=== PATIENT | male | born 1985 | race Caucasian/White ===

== ENCOUNTER → 2020-02-19 13:26 | Outpatient (BNVA) | payer SELFPAY | PROVIDERS: PCP Internal Medicine; Visit Provider Internal Medicine ==

== ENCOUNTER 2021-03-19 07:28 | Outpatient (REF) | payer BC, SELFPAY ==
[2021-03-19 08:22] LABS: COVID-19 Test Positive (Negative)
== END 2021-03-19 07:29 | disposition home or self-care (01) ==
LOC: HO.LAB 07:28
PROVIDERS: Visit Provider Internal Medicine
DX: Z20.822 Contact with and (suspected) exposure to COVID-19 (principal)
CPT/HCPCS: 36415; 87635

== ENCOUNTER 2022-08-22 07:26 | Emergency (ER) | payer OTHER, SELFPAY ==
--- NOTE | ~2022-08-22 | US_ITS ---
EXAMINATION: US VENOUS ULTRASOUND WITH DOPPLER LOWER EXTREMITY, RIGHT CLINICAL INFORMATION: Right lower extremity pain COMPARISON: None available. TECHNIQUE: Ultrasound of the deep veins is performed from the hip to the calf with compression sonography and color and pulse Doppler assessment. Spectral analysis with color-flow imaging is performed. FINDINGS: There is normal venous compression and respiratory variation and augmented flow. The visualized common femoral vein, superficial femoral vein, profunda femoral vein, popliteal vein, and the trifurcation region shows no evidence of deep venous thrombosis. There is no significant popliteal fossa cyst. If the patient's symptoms persist, followup ultrasound in 5 days 7 days might be of value to exclude proximal propagation from a non-visualized calf vein. US/US venous duplex LE RT IMPRESSION: No DVT demonstrated in the right lower extremity.
--- NOTE | ~2022-08-22 | XR_ITS ---
EXAMINATION: XR KNEE, RIGHT CLINICAL INFORMATION: Pain right lower extremity. COMPARISON: Right knee radiographs 12/14/2009 TECHNIQUE: Four views of the right knee. FINDINGS: Normal bony mineralization. No fracture, dislocation, destructive process, or suprapatellar effusion. Hoffa's fat pad appears normal. There is spurring at the quadriceps insertion patella. There are degenerative changes with mild narrowing medial knee joint compartment and marginal osteophytes from the medial femoral condyle and medial tibial plateau. No erosive change or chondral calcinosis. XR/XR knee RT 4V IMPRESSION: - Mild degenerative changes medial knee joint compartment. - Spurring at quadriceps insertion patella.
[2022-08-22 07:28] VITALS: BP 133/85; PULSE 72; RESP 18; TEMP 36.2; O2SAT 99; BMI 31.2
--- NOTE | 2022-08-22 08:00 | ED_ITS ---
HPI - Extremity Problem General Chief complaint: Extremity Problem Stated complaint: r knee down to calf pain Time Seen by Provider: 08/22/22 07:37 Source: patient Mode of arrival: ambulatory Limitations: no limitations History of Present Illness HPI Narrative: 37 year old male with no significant past medical history presents today with right knee pain x1 month. Patient reports both anterior and posterior right knee pain that is worse with rest and better with standing/ movement. Describes it as a constant aching sensation. The pain occasionally radiates down into the right foot. He states he is able to ambulate however does so with pain. Denies left knee or left lower extremity pain. Denies numbness, paresthesias, weakness, chest pain, shortness of breath, neck pain, back pain, bowel or bladder incontin ence. No injury or trauma to the RLE. Denies recent travel or surgery. No personal history of VTE. Not on blood thinners. MD Complaint: extremity pain Onset (ago): month(s) (1) Pain Consistency: constant Location: right and knee Related Data Previous Rx's Medication Instructions Recorded naproxen 500 mg tablet 500 mg PO BID PRN pain 10 days #20 08/22/22 tabs Allergies Allergy/AdvReac Type Severity Reaction Status Date / Time No Known Allergies Allergy Unverified 12/05/19 17:05 Review of Systems Review of Systems: Constitutional: No Fever, No Chills ENT/Mouth: No Ear Pain, No Nasal Congestion, No Sinus Pain, No Hoarseness, No sore throat, No Rhinorrhea Cardiovascular: No Chest Pain, No SOB Respiratory: No Cough Gastrointestinal: No Nausea, No Vomiting, No Diarrhea, No Constipation, No Abdominal pain Genitourinary: No Urinary Incontinence/retention Musculoskeletal: + joint pain, No Myalgias, No Joint Swelling Skin: No Skin Lesions, No rash Neuro: No Weakness, No Numbness, No Paresthesias Yes all other systems are reviewed and are negative Constitutional: Constitutional: Reports as per [facility] Past Medical History Attestation statement: The following information was validated with the patient. Source: old records reviewed Social History Social History Alcohol intake: never Smoked in Last 30 Days: No Use of substances other than those prescribed or required for medical reasons: No Advance Directives: No Advance Directives Information Provided: Yes Physical Exam Vital Signs: Vital Signs: Last Vital Signs Temp 97.7 F 08/22/22 09:18 Pulse 52 08/22/22 09:18 Resp 16 08/22/22 09:18 BP 123/81 08/22/22 09:18 Pulse Ox 98 08/22/22 09:18 O2 Del Method Room Air 08/22/22 09:18 BMI result Body Mass Index 31.2 VSS Const: General: cooperative and healthy appearing Orientation/consciousness: patient oriented x3 Limitations: no limitations HEENT: Head: Yes normal to inspection and Yes atraumatic Ears: hearing grossly normal bilaterally General nose exam: Normal external nose present Face and sinus: Yes normal facial exam Eyes: General: appearance normal, both eyes and all related structures EOM: EOMs intact bilaterally Neck: Neck: Yes normal visual inspection and Yes no meningeal signs Resp: Effort & Inspection: normal respiratory effort and no respiratory distress Cardio: Rate: regular rate Rhythm: regular rhythm Heart sounds: S1 normal heart sound present and S2 normal heart sound present Peripheral pulses: Peripheral pulses 2+ throughout Back/Spine/Pelvis: Thoracic/Lumbar Spine: thoracic and lumbar spine normal to inspection, No paraspinal muscle tenderness and No thoracic spinal tenderness Skin: Lesions: no lesions Rashes: no rashes Trauma: no lacerations or abrasions Wounds: no wounds Neuro: General: patient oriented x3, tone normal and no meningeal signs Gait exam (Neuro): Normal gait present Extrem: Other: diffuse right knee ttp > medial aspect, negative teja's sign b/l. No erythema/warmth or crepitus. Full range of motion intact. Neurovascular intact distal General: Yes no calf tenderness, No calf tenderness and No muscle atrophy Right upper extremity: normal to inspection Left upper extremity: normal to inspection Right lower extremity: full ROM, normal capillary refill, edema Details: pitting and 1+ and knee; no cyanosis and joint enlargement noted Lef t lower extremity: normal to inspection Course Course Course Narrative: US venous duplex LE RT IMPRESSION: No DVT demonstrated in the right lower extremity. XR knee RT 4V IMPRESSION: - Mild degenerative changes medial knee joint compartment. - Spurring at quadriceps insertion patella. Results discussed with patient including worrisome signs and symptoms and strict return precautions, and when to return to the emergency department. They verbalized understanding and feel safe for discharge at this time. Medical Decision Making Medical Decision Making [facility] Narrative: 37 year old male with no significant past medical history presents today with atraumatic aching right knee pain x1 month worse with rest and better with standing/ movement. No recent travel/ surgery. No VTE history. Not on blood thinners. VSS. Physical exam significant for FROM of right knee, right knee diffusely TTP, medially > laterally, +1 pitting edema of the RLE w/o calf tenderness. No erythema/warmth or deformity Clinical suspicion for bakers cyst, DVT, meniscal/ligamental or tendon injury, arthritis. Low suspicion for dislocation/fracture, septic joint/arthritis Plan: US of RLE ordered to r/o DVT. XR of the R knee ordered to evaluate for bony abnormalities. Please refer to course for remaining clinical decision making, interpretation of labs/imaging results, and discussions with consultants and/or family members. Differential Diagnosis Differential Diagnoses: The differential diagnosis associated with the presentation includes As above. Admission/Observation Consideration of admission/observation: Escalation of care including admission/observation considered Independent Interpretation I performed an independent interpretation of an: Plain X-Ray Radiology Impression Discussion of test interpretation with radiology: I have reviewed the radiologist's reading. External Record Review External record reviewed: Inpatient record, Office record, Outpatient record, Prior outpatient labs, Prior outpatient radiology, Primary care record and Outside ED record Tests considered The following testing was considered but not selected: As above Prescription Management I considered prescription management with: Pain Medication Discharge Plan Discharge Clinical Impression: Chronic knee pain Patient Disposition: Home, Self-Care Instructions: Knee Pain (ED) Additional Instructions: Your x-ray shows some degenerative/arthritic changes of her knee as well as some spurring a your quadriceps tendon Your ultrasound was negative for DVT Were Familia wrap for comfort and stability Ice and elevate Wear compression stockings as needed Follow-up with Orthopedics and your doctor, you may need an outpatient MRI Prescriptions: New naproxen 500 mg tablet 500 mg PO BID PRN (Reason: pain) 10 Days Qty: 20 0RF Referrals: [facility] [Provider Group] - 1 week Physician,Unknown J [Primary Care Provider] - Stand Alone Forms: Work/School Release Interventions: ED Discharge Assessment Last Done: 08/22/22 10:47 Discharge Date/Time: 08/22/22 10:49
[2022-08-22 09:18] VITALS: BP 123/81; PULSE 52; RESP 16; TEMP 36.5; O2SAT 98
== END 2022-08-22 10:49 | disposition home or self-care (01) ==
PROVIDERS: Emergency Provider Emergency Medicine
DX: G89.29 Other chronic pain (principal); M25.561 Pain in right knee; R60.0 Localized edema
CPT/HCPCS: 73564; 93971; 99284

== ENCOUNTER 2023-09-14 06:01 | Emergency (ER) | payer MEDICAID, SELFPAY ==
--- NOTE | ~2023-09-14 | XR_ITS ---
EXAMINATION: XR CHEST CLINICAL INFORMATION: Cough COMPARISON: None available. TECHNIQUE: 2 views of the chest were obtained. FINDINGS: No significant abnormality is noted involving the heart, lungs, mediastinum, bony thorax or soft tissues. XR/XR chest 2V IMPRESSION: Unremarkable examination.
--- NOTE | 2023-09-14 07:26 | ED.SOB ---
HPI - SOB/Dyspnea General Stated Complaint: Asthma Time Seen by Provider: 09/14/23 07:12 Source: patient Mode of arrival: ambulatory Limitations: no limitations History of Present Illness ED Provider: DEREK HIDALGO Narrative: 38 yo male with no sig PMH quit smoking recently had smoked for 2 years got sick 3 weeks ago with URI symptoms and since then has dry persistent cough that will not go away. No hx of asthma, no sputum, no fevers. MD elicited complaint: cough Onset (ago): week(s) (3) Context: recent illness Timing: intermittent Severity: mild Exacerbating factors: coughing Relieving factors: rest Associated symptoms: cough and wheezing Treatment prior to arrival: none Related Data Previous Rx's ?Medication ?Instructions ?Recorded naproxen 500 mg tablet 500 mg PO BID PRN pain 10 days #20 08/22/22 tabs albuterol sulfate 90 mcg/actuation 2 puff inhalation QID PRN 09/14/23 aerosol inhaler shortness of breath or wheezing #6.7 grams azithromycin 250 mg tablet See Rx Instructions PO .COMPLEX #6 09/14/23 tabs fluticasone 100 mcg-salmeterol 50 1 inh inhalation Q12H #60 ea 09/14/23 mcg/dose blistr powdr for inhalation prednisone 20 mg tablet 40 mg (2 x 20 mg) PO DAILY 4 days 09/14/23 #8 tabs Allergies Allergy/AdvReac Type Severity Reaction Status Date / Time No Known Allergies Allergy Unverified 12/05/19 17:05 Review of Systems Review of Systems: Constitutional : No Fever, No Chills ENT/Mouth : No Hoarseness, No sore throat, No Rhinorrhea Eyes: No Redness, No Discharge, No Vision Changes Cardiovascular : No Chest Pain, positive SOB, positive Dyspnea on Exertion, No Edema Respiratory : positive Cough, No Sputum, positive Wheezing, Gastrointestinal : No Nausea, No Vomiting, No Diarrhea, No abdominal Pain Genitourinary : No Dysuria, No Hematuria Musculoskeletal : No joint pain, No Myalgias Skin : No rash Neuro : No Weakness, No Numbness, No Headache Psych : No anxiety, depression All other systems reviewed and are negative PMFSH Past Medical History Attestation statement: The following information was validated with the patient. Source: old records reviewed Medical History No pertinent past medical history Social History Social History (Updated 09/14/23 @ 07:30 by Mary Patel DO) Alcohol intake: never Patient Tobacco Use Status: Never used Tobacco Advance Directives: No Advance Directives Information Provided: No Physical Exam Vital Signs: Vital Signs: Last Vital Signs Temp 97.5 F 09/14/23 09:11 Pulse 90 09/14/23 09:11 Resp 16 09/14/23 09:11 BP 142/71 H 09/14/23 09:11 Pulse Ox 96 09/14/23 09:11 O2 Del Method Room Air 09/14/23 09:11 Appearance: Alert. Oriented X3. No acute distress. Eyes: Pupils equal, round and reactive to light. ENT: Pharynx normal. Neck: Normal inspection. Neck supple. CVS: Normal heart rate and rhythm. Pulses normal. Respiratory: No respiratory distress. Breath sounds exp wheezes throughout Abdomen: Soft and nontender. Skin: Skin warm and dry. Normal skin color. Extremities: No lower extremity edema. Neuro: Oriented X 3. No motor deficit. No sensory deficit. Medications Administered Discontinued Medications Generic Name Dose Route Start Last Admin Trade Name Freq PRN Reason Stop Dose Admin Albuterol Sulfate 2.5 mg/ 0 mg 09/14/23 07:31 09/14/23 07:34 Albuterol/Ipratropium 3 ml INHALE 09/14/23 07:32 1 dose ONCE ONE Administration Albuterol Sulfate 2.5 mg/ 0 mg 09/14/23 08:38 09/14/23 08:41 Albuterol/Ipratropium 3 ml INHALE 09/14/23 08:39 1 dose ONCE ONE Administration Prednisone 40 mg 09/14/23 07:24 09/14/23 07:40 Prednisone 20 Mg Tablet PO 09/14/23 07:25 40 mg ONCE ONE Administration Medical Decision Making Medical Decision Making [facility] Narrative: 38 yo male with no sig PMH here with wheezes and cough 3 weeks post viral infection at this time viral panel, chest xray will need neb therapy, steroids and anticipate starting on rescue and maintenance INH - suspect post viral reactive airway ds vs bronchitis. Differential Diagnosis Differential Diagnoses: The differential diagnosis associated with the presentation includes bronchitis, reactive airway disease Admission/Observation Consideration of admission/observation: Escalation of care including admission/observation considered no hypoxia, improved stable for DC Lab Data [facility] Lab Attestation statement: I reviewed the patient's lab results. Labs: Lab Results 09/14/23 Range/Units 07:32 Influenza Type A (PCR) NEGATIVE (Negative) Influenza Type B (PCR) NEGATIVE (Negative) RSV RNA Qual (PCR) NEGATIVE (Negative) SARS-CoV-2 RNA (RT-PCR) NEGATIVE (Negative) Independent Interpretation I performed an independent interpretation of an: Plain X-Ray (no pneumonia) Radiology Impression Discussion of test interpretation with radiology: I have reviewed the radiologist's reading. Independent Historian Clinical information obtained from an independent historian. History obtained from or confirmed by: Spouse Prescription Management I considered prescription management with: Antibiotic and Other Discharge Plan Discharge Clinical Impression: Bronchitis Reactive airway disease Qualifiers: Asthma severity: mild Asthma persistence: persistent Asthma complication type: with acute exacerbation Qualified Code(s): J45.31 - Mild persistent asthma with (acute) exacerbation Patient Disposition: Home, Self-Care Instructions: Acute Bronchitis (ED), Wheezing (ED) Additional Instructions: negative for flu, covid, rsv no signs of pneumonia on CXR treat as bronchitis and asthma after illness complete all medications follow up with doctor as soon as posible return for any worsening symptoms or concerns after steroid inhaler please rinse mouth Prescriptions: New azithromycin 250 mg tablet See Rx Instructions .ROUTE .COMPLEX Qty: 6 0RF Rx Instructions: For 250 mg dose pack: take 500 mg today (day 1), then 250 mg for 4 days (days 2-5) prednisone 20 mg tablet 40 mg PO DAILY 4 Days Qty: 8 0RF albuterol sulfate 90 mcg/actuation HFA aerosol inhaler 2 puff inhalation QID PRN (Reason: shortness of breath or wheezing) Qty: 6.7 1RF fluticasone propion-salmeterol 100-50 mcg/dose blister with device 1 inh inhalation Q12H Qty: 60 1RF Rx Instructions: rinse mouth after use No Action naproxen 500 mg tablet 500 mg PO BID PRN (Reason: pain) 10 Days Qty: 20 0RF Stand Alone Forms: Work/School Release Discharge Date/Time: 09/14/23 09:19 Print Language: Italian
[2023-09-14] MEDS: Albuterol Sulfate 2.5 MG, Albuterol/Iprat 2.5/0.5MG 3 ML 3 ML INHALE ×2 (07:34→08:41)
[2023-09-14 07:35] VITALS: PULSE 74; RESP 20; O2SAT 95
[2023-09-14] MEDS: predniSONE 20 MG TABLET 40 MG PO (07:40)
[2023-09-14 08:42] VITALS: PULSE 70; RESP 18; O2SAT 95
[2023-09-14 08:54] LABS: Influenza A PCR NEGATIVE (Negative); Influenza B PCR NEGATIVE (Negative); Resp Syncy Virus RNA Qual PCR NEGATIVE (Negative); SARS COV2 PCR INHOUSE NEGATIVE (Negative)
[2023-09-14 09:11] VITALS: BP 142/71; PULSE 90; RESP 16; TEMP 36.4; O2SAT 96
== END 2023-09-14 09:19 | disposition home or self-care (01) ==
PROVIDERS: Emergency Provider Emergency Medicine
DX: J45.31 Mild persistent asthma with (acute) exacerbation (principal); Z03.818 Encounter for observation for suspected exposure to other biological agents ruled out
CPT/HCPCS: 0241U; 71046; 94640; 99283; 99284